=== PATIENT | male | born 1965 | race Caucasian/White ===

== ENCOUNTER 2023-09-12 10:25 | Emergency (ER) | payer MEDICARE, SELFPAY ==
[2023-09-12 10:27] VITALS: BP 119/98
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
[2023-09-12 12:02] LABS: Hematocrit 42.2 % (39.0-52.0); Hemoglobin 14.7 g/dL (13.0-18.0); Mean Corp Hgb Conc. 34.8 g/dL (33.0-37.0); Mean Corpuscular Hgb 33.2 pg (27.0-31.0); Mean Corpuscular Volume 95.3 fL (80.0-94.0); Mean Platelet Volume 9.6 fL (7.4-10.4); Platelet Count 273 10^3/uL (130-400); Red Blood Cell Count 4.43 10^6/uL (4.70-6.10); Red Cell Dist. Width 12.9 % (11.5-14.5); White Blood Cell Count 15.1 10^3/uL (4.8-10.8)
[2023-09-12 12:11] LABS: COVID-19 Antigen Negative (Negative)
[2023-09-12 12:15] LABS: ALT (SGPT) 21 U/L (0-50); AST (SGOT) 27 U/L (17-59); Acetaminophen < 10 ug/ml (10-30); Albumin 4.5 g/dl (3.5-5.0); Alkaline Phosphatase 108 U/L (38-126); Blood Urea Nitrogen 17 mg/dl (9-20); Carbon Dioxide 23 mmol/L (22-30); Chloride 110 mmol/L (98-107); Glucose 112 mg/dl (70-99); Potassium 4.1 mmol/L (3.5-5.1); Salicylate < 1.0 mg/dl (2.0-20.0); Sodium 139 mmol/L (135-145); Total Bilirubin 0.8 mg/dl (0.2-1.3); Total Protein 6.8 g/dl (6.3-8.2); eGFR > 60.00
[2023-09-12 12:16] LABS: Alcohol None Detected
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
[2023-09-12 15:25] LABS: Amphetamines Negative (Negative); Barbiturates Negative (Negative); Marijuana Positive (Negative)
[2023-09-12 15:26] LABS: Benzodiazepines Negative (Negative); Buprenorphine Negative (Negative); Cocaine Negative (Negative); Methadone Negative (Negative); Methamphetamines Negative (Negative); Opiates Negative (Negative); Phencyclidine Negative (Negative); Tricyclic Antidepressants Negative (Negative)
[2023-09-12 18:28] LABS: Folate 7.5 ng/ml (2.76-20); Vitamin B12 279 pg/ml (239-931)
--- NOTE | 2023-09-13 04:46 | EDRN ---
Upon determination of discharge, Hospital Staff is requested to call [facility] Police due to open warrant on pt for arrest. [facility] Police number: [phone]
Crisis Staff also made aware of pt warrant situation.
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
[2023-09-13] MEDS: ATIVAN 2 MG IM (10:47)
[2023-09-13] MEDS: BENADRYL 25 MG IM (10:47)
[2023-09-13] MEDS: HALDOL 5 MG IM (10:47)
[2023-09-13] MEDS: ATIVAN 2 MG PO (22:49)
[2023-09-13] MEDS: ZYPREXA 5 MG PO (22:49)
== END 2023-09-14 00:29 ==
LOC: EMR 10:25
PROVIDERS: CONSULT PHYSICIAN Psychiatry & Neurology Psychiatry; EMERGENCY PHYSICIAN Emergency Medicine
DX: F23 Brief psychotic disorder (principal); Z11.52 Encounter for screening for COVID-19
CPT/HCPCS: 99285; 96372 ×3; 80053; 80143; 80179; 80306; 82077; 82607; 82746; 85027; 87811; 93005; J2358

== ENCOUNTER 2024-04-14 01:48 | Observation (INO) | payer MEDICARE, SELFPAY ==
[2024-04-13] VITALS (8 sets, daily range): BP systolic 93–116; BP diastolic 61–92; PULSE 57–76; BMI 30.5
--- NOTE | 2024-04-13 21:38 | ED.GENMED ---
ED Provider Triage
<Devante Mckenna PA-C - Last Filed: 04/13/24 21:42>
-
Patient seen by provider in Triage?: Seen in Triage
Attestation: A medical screening examination has been initiated by a qualified medical provider. Based on the assessment performed at this time, it has been determined that an emergent medical condition may exist and the patient has been informed
that further medical evaluation and possible additional diagnostic testing may be needed.
HPI: 59-year-old male presenting to the ER via EMS near syncopal event at home, reportedly had 2 syncopal events while in the EMS truck. Patient clammy, nauseous and feels lightheaded. Per EMS they got a call from patient's chief business officer that
patient had a near syncopal event and was lowered to the ground. Patient with history of similar and has had episodic bradycardia. He reports seeing cardiology for this but does not remember who. Denies any GI symptoms. No chest pain. Due to
multiple syncopal events and patient appearing quite unwell decision was made to bring him back immediately into the ER. EKG done shows sinus bradycardia. Labs, IV fluids and orthostatic vital signs ordered. Patient was placed on manager cardiac
and pacer pads in case of any further bradycardic episodes
GENERAL: Alert , Castelan, diaphoretic and quite ill-appearing
EYE: No visual abnormalities.
NECK: Trachea midline
ENT: No visible abnormalities.
LUNGS: No acute respiratory distress
NEUROLOGICAL: Alert and oriented
SKIN: Skin intact. No visible changes.
MUSCULOSKELETAL: Moving extremities normally
PSYCH: Normal and appropriate interaction.
This is a medical evaluation conducted in person to initiate diagnostic evaluation and provide initial therapeutics. Please see further documentation by the treating clinician.
History of Present Illness
<Devante Mckenna PA-C - Last Filed: 04/13/24 21:42>
General
Chief Complaint: Fainting/Passed Out
<Yordy Guthrie DO - Last Filed: 04/13/24 23:32>
General
Source: patient
Exam Limitations: none
History of Present Illness
History of Present Illness:
See MDM
Past History
<Devante Mckenna PA-C - Last Filed: 04/13/24 21:42>
Past History
ED Past Medical History: Psychiatric (Psychosis) and Other (Chronic pain, low testosterone)
ED Past Surgical History: Orthopedic
Social History
Tobacco: Non-smoker
Alcohol: None
Drug: None
Personal: Single
Phy Exam
<Yordy Guthrie DO - Last Filed: 04/13/24 23:32>
Physical Exam
Physical Exam:
See MDM
Course
<Devante Mckenna PA-C - Last Filed: 04/13/24 21:42>
Orders/Labs/Results
Orders:
Orders
04/13/24 21:28
Electrocardiogram (*1) Urgent
Reason for Study: Syncope
EKG- Treatment ONCE
04/13/24 21:38
Orthostatic VS- Treatment ONCE
0.9% Sodium Chloride 1000 ml [Nss] 1,000 ml IV BOLUS
04/13/24 21:43
Basic Metabolic Panel Urgent
Complete Blood Count/With Diff Urgent
Manual Differential Urgent
Troponin I Urgent
Abnormal Lab Results
04/13/24
21:43
RBC 4.49 L 10^6/uL
(4.70-6.10)
MCH 31.8 H pg
(27.0-31.0)
Monocytes (Manual) 11 H %
(2-9)
BUN 21 H mg/dl
(9-20)
Glucose 144 H mg/dl
(70-99)
04/13/24 21:43
04/13/24 21:43
Vital Signs
Initial and Last Documented VS:
Initial Vital Signs
Temp Pulse Resp
98.7 F 62 15
04/13/24 21:26 04/13/24 21:26 04/13/24 21:26
Last Documented Vital Signs
Temp Pulse Resp BP Pulse Ox
98.7 F 72 16 112/72 99
04/13/24 21:26 04/13/24 23:15 04/13/24 23:15 04/13/24 23:13 04/13/24 23:15
<Yordy Guthrie, DO - Last Filed: 04/13/24 23:32>
Orders/Labs/Results
Orders:
Orders
04/13/24 21:28
Electrocardiogram (*1) Urgent
Reason for Study: Syncope
EKG- Treatment ONCE
04/13/24 21:38
Orthostatic VS- Treatment ONCE
0.9% Sodium Chloride 1000 ml [Nss] 1,000 ml IV BOLUS
04/13/24 21:43
Basic Metabolic Panel Urgent
Complete Blood Count/With Diff Urgent
Manual Differential Urgent
Troponin I Urgent
Abnormal Lab Results
04/13/24
21:43
RBC 4.49 L 10^6/uL
(4.70-6.10)
MCH 31.8 H pg
(27.0-31.0)
Monocytes (Manual) 11 H %
(2-9)
BUN 21 H mg/dl
(9-20)
Glucose 144 H mg/dl
(70-99)
04/13/24 21:43
04/13/24 21:43
Vital Signs
Initial and Last Documented VS:
Initial Vital Signs
Temp Pulse Resp
98.7 F 62 15
04/13/24 21:26 04/13/24 21:26 04/13/24 21:26
Last Documented Vital Signs
Temp Pulse Resp BP Pulse Ox
98.7 F 72 16 112/72 99
04/13/24 21:26 04/13/24 23:15 04/13/24 23:15 04/13/24 23:13 04/13/24 23:15
<Yordy Guthrie, DO - Last Filed: 04/13/24 23:32>
MDM/Problems Addressed
Differential Diagnosis Includes:
HPI and MDM Narrative:
59-year-old male presenting with multiple episodes of syncope. Patient states he has a history of bradycardic syncope. He states he is feeling 'off' today. EMS initially called for refusal. Patient had called EMS because he did not feel well.
However, patient had multiple syncopal events in front of EMS which prompted transport to the emergency department. On exam, patient does appear pale. He is bradycardic. He denies chest pain or shortness of breath
Will continue to monitor on telemetry and will obtain basic blood including troponin
Physical exam
General: Fatigued and pale
HEENT: protecting airway
Neck: appears supple
CV: No evidence of cyanosis. Bradycardic. No murmur
Resp: No accessory muscle use. Lungs clear
Abd: Non-distended
Extremities: No deformities
Neuro: alert
Psych: Normal affect
Skin: Intact
Problems Addressed including Acute and Chronic Conditions affecting care:
1. Syncope
Acuity: acute
Prognosis: stable
Details: Potentially bradycardic related. Will continue to monitor on the telemetry to look for any other evidence of cardiac arrhythmia
Updates
Despite IV fluids, patient still symptomatic. He is symptomatic at rest and even when he walks. Given the multiple episodes of syncope and his bradycardia, will admit for monitoring and further evaluation
Differential Diagnosis (but not limited to): Sick sinus syndrome, cardiac arrhythmia, syncope
Testing considered: D-dimer but he denies chest pain
Drug therapy (if applicable): OTC meds, please see d/c instruction regarding Rx drugs
Amount and/or Complexity of Data Reviewed
Clinical info obtained from: Patient
External data reviewed: N/A
Labs I independently reviewed (but not limited to): Mild elevated blood sugar
Radiology: N/A
Pulse Ox: not hypoxic
EKG independently reviewed: Sinus bradycardia, normal axis, no STEMI
Junior Engineer: Sinus bradycardia
Critical Care: N/A
Risk of Complication:
Social Determinants of health: Good social support
Discussed with other providers: Hospitalist
Escalation of Care includes Admit/Obs: Given the multiple syncopal episodes at rest, will admit for telemetry monitoring
Occasional wrong word or 'sound a like' substitutions may have occurred due to the inherent limitations of voice recognition software. Read the chart carefully and recognize, using context, where substitutions have occurred.
<Yordy Guthrie DO - Last Filed: 04/13/24 23:32>
*Critical Care Note
Total Time (30-74mins, 75-104mins- exclusive of procedures): Not Applicable
ED Attending Note
<Devante Mckenna PA-C - Last Filed: 04/13/24 21:42>
-
Portions of this chart may have been created with voice recognition software.� Occasional wrong word or��sound alike� substitutions may have occurred due to the inherent limitations of voice recognition software.
Discharge Plan
Departure
Patient Disposition: Admit
Date of Disposition: 04/13/24
Time of Disposition: 23:00
Admit to: Telemetry
Presentation/result/management discussed w/ accepting MD/DO: Hospitalist
Patient with high blood pressure during this ER visit?: No
Discharge Problem:
Syncope, Hyperglycemia
Prescriptions:
No Action
olanzapine 10 mg Tablet
10 mg PO HS
desvenlafaxine succinate 25 mg Tablet Extended Release 24 Hr
25 mg PO DAILY
Referrals:
Timmy Thomson MD [Active] -
NONE,* [Family Provider] -
Interventions
Interventions:
*Risk Screen - Suicide Last Done: 04/13/24 21:26
*General Assessment Last Done: 04/13/24 21:26
*Neglect/Abuse Screening Last Done: 04/13/24 21:36
*ED COVID-19 Vaccine History Last Done: 04/13/24 21:36
ED- Cardiac Assessment Last Done: 04/13/24 21:36
ED- Neurological Assessment Last Done: 04/13/24 21:36
Discharge Date and Time
Print Language: BHUTANESE
[2024-04-13] MEDS: NSS 1000 IV (21:40)
[2024-04-13 21:56] LABS: Hematocrit 40.2 % (39.0-52.0); Hemoglobin 14.3 g/dL (13.0-18.0); Mean Corp Hgb Conc. 35.6 g/dL (33.0-37.0); Mean Corpuscular Hgb 31.8 pg (27.0-31.0); Mean Corpuscular Volume 89.5 fL (80.0-94.0); Mean Platelet Volume 9.2 fL (7.4-10.4); Platelet Count 252 10^3/uL (130-400); Red Blood Cell Count 4.49 10^6/uL (4.70-6.10); White Blood Cell Count 10.1 10^3/uL (4.8-10.8)
[2024-04-13 22:06] LABS: Blood Urea Nitrogen 21 mg/dl (9-20); Calcium 9.1 mg/dl (8.4-10.2); Carbon Dioxide 24 mmol/L (22-30); Chloride 106 mmol/L (98-107); Estimated Creatinine Clearance 95 ml/min; Glucose 144 mg/dl (70-99); Sodium 141 mmol/L (135-145); eGFR > 60.00
[2024-04-13 22:08] LABS: Absolute Neutrophils -Man Diff 4.9 10^3/uL (1.4-6.5); Atypical Lymphocytes 1 %; Band Neutrophils 0 % (0-3); Eosinophils 1 % (0-6); Lymphocytes 38 % (20-51); Monocytes 11 % (2-9); Normal RBC Morphology Yes; Platelets Checked Yes; Segmented Neutrophils 49 % (42-75); Total Cells Counted 100
[2024-04-13 22:12] LABS: Troponin I < 0.012 ng/ml
[2024-04-14] VITALS (14 sets, daily range): BP systolic 99–158; BP diastolic 65–110; BMI 29.6
--- NOTE | 2024-04-14 01:43 | HPS.HSE ---
Family Physician
-
Family Physician: * NONE
Chief Complaint
-
Syncope
History of Present Illness
Patient is a 59y M with PMH significant for anxiety / depression who presents to ED complaining of multiple episodes of syncope this evening. Patient states that he was feeling well prior to this evening. He denies any recent N/V/D, increased
urination, fevers / chills, etc. Around 8Pm this evening, he got up and felt lightheaded / woozy. He states that he 'went out' though he denies falling or any significant injury. he states that he attempted to get back up; however, he had
recurrent symptoms each time he did so. He was unable to get up / stand upright and he called EMS.
In the ED, patient was noted to have mild bradycardia with rates in the 50-70 range. Heart rates did increase with activity / stimulation.
His BP was borderline: 90-110s systolic. Orthostatic signs were performed without significant drop in BP with position change.
He denies any recent med changes.
Medical History
Past Medical History
Past Medical History: Reports Other
Additional Past Medical History:
Hyperhidrosis
Anxiety / Depression
Dysautonomia
Past Surgical History: Reports Other
Additional Past Surgical History:
Hand Surgery
Bilateral Sympathectomies
Septoplasty
Social History
Tobacco: Smoker (Current some day smoker.)
Alcohol: None
Drug: None
Family History
Family History: Not pertinent
Allergies / Home Medications
Allergies reflects when Allergies were last updated in [employer].
Home Medications with original date entered in [employer]
Allergy/Medication List:
Allergies
Allergy/AdvReac Type Severity Reaction Status Date / Time
No Known Allergies Allergy Verified 09/12/23 13:25
Home Medications
desvenlafaxine succinate 25 mg tablet,extended release 24 hr 25 mg PO DAILY 04/13/24
olanzapine 10 mg tablet 10 mg PO HS 04/13/24
Review of Systems
-
History Source: Patient
A 12 point ROS was completed and negative except as noted: Yes
Constitutional: Reports Fatigue; Denies Fever or Chills
EENT: Denies Sore Throat
Respiratory: Denies Cough or Trouble Breathing
Cardiac: Reports Syncope; Denies Chest Pain, Diaphoresis or Palpitations
Abdomen/GI: Denies Abdominal Pain, Nausea, Vomiting or Diarrhea
: Denies Dysuria or Frequency
Musculoskeletal: Denies Joint Pain or Edema
Neurological: Reports Dizzy; Denies Headache
Psych: Denies Depression or Anxiety
Physical Exam
Vital Signs
Vital Signs
Temp Pulse Resp BP Pulse Ox
98.7 F 52 15 99/65 95
04/13/24 21:26 04/14/24 01:15 04/14/24 01:15 04/14/24 01:00 04/14/24 01:15
Physical Exam
General: Other (59y M in no acute distress.)
HEENT: Moist mucous membranes and PERRLA
Respiratory: Clear; No Wheezes, Rales or Rhonchi
Cardiac: S1/S2 and Regular Rhythm; No Murmur
GI: Soft, Non Tender, Non Distended and Normal Bowel Sounds
Musculoskeletal: No Clubbing, No Cyanosis and No Edema
Neuro: AO x 3 and Nonfocal/grossly intact
Laboratory Results
-
04/13/24 21:43
04/13/24 21:43
Laboratory Results
Troponin I < 0.012 ng/ml 04/13/24 21:43
Impression/Plan
-
A/P: Patient is a 59y M with PMH significant for anxiety / depression and dysautonomia who presents to ED for evaluation after multiple syncopal episodes at home this evening.
Syncope
- Observe overnight for further evaluation and treatment.
- Mild - moderate bradycardia - ? symptomatic even though not severe.
- Heart rate is variable in the ED with stimulation / activity.
- Orthostatic signs unremarkable in the ED - repeat in AM.
- IVFs overnight.
- Monitor on tele.
- PT / OT evals in the AM to assess gait / balance / etc.
- Consider Cardio eval if significant bradycardia / pauses / etc.
Anxiety / Depression
- Stable. Continue current medications.
DVT Prophylaxis: SCDs
Code Status: Full
[2024-04-14] MEDS: NSS 1000 IV (03:29)
[2024-04-14 07:23] LABS: Blood Urea Nitrogen 15 mg/dl (9-20); Calcium 8.3 mg/dl (8.4-10.2); Carbon Dioxide 23 mmol/L (22-30); Chloride 112 mmol/L (98-107); Estimated Creatinine Clearance 119 ml/min; Glucose 96 mg/dl (70-99); Potassium 4.3 mmol/L (3.5-5.1); Sodium 142 mmol/L (135-145); eGFR > 60.00
[2024-04-14 07:57] LABS: Hematocrit 37.1 % (39.0-52.0); Hemoglobin 13.5 g/dL (13.0-18.0); Mean Corp Hgb Conc. 36.4 g/dL (33.0-37.0); Mean Corpuscular Hgb 32.6 pg (27.0-31.0); Mean Corpuscular Volume 89.6 fL (80.0-94.0); Mean Platelet Volume 9.4 fL (7.4-10.4); Platelet Count 183 10^3/uL (130-400); Red Blood Cell Count 4.14 10^6/uL (4.70-6.10); Red Cell Dist. Width 12.1 % (11.5-14.5); White Blood Cell Count 6.1 10^3/uL (4.8-10.8)
[2024-04-14 08:05] LABS: TSH Reflex To Free T4 0.67 uIU/ml (0.47-4.68)
[2024-04-14] MEDS: PRISTIQ 25 MG PO (08:52)
[2024-04-14 10:55] LABS: Alcohol None Detected
[2024-04-14 11:07] LABS: Troponin I < 0.012 ng/ml
[2024-04-14 11:21] LABS: Amphetamines Negative (Negative); Barbiturates Negative (Negative); Benzodiazepines Negative (Negative); Buprenorphine Negative (Negative); Cocaine Negative (Negative); Methadone Negative (Negative); Methamphetamines Negative (Negative); Opiates Negative (Negative); Phencyclidine Negative (Negative)
[2024-04-14 11:22] LABS: Marijuana Negative (Negative); Tricyclic Antidepressants Negative (Negative)
[2024-04-14] MEDS: NSS IV (14:14)
--- NOTE | 2024-04-14 14:35 | CON.CAR ---
Addendum entered and electronically signed by Pierre Bonilla MD 04/14/24 16:23:
I saw and examined the patient.
The STEWARDING SUPERVISOR's note was reviewed and I agree with the note.
Comment: He reports a long history of recurrent syncope that is most c/w vaso-vagal syncope. This episode was different in that it was not preceded by a significant prodromal symptoms and he had recurrent syncope. His echo is unremarkable. His
EKG shows mild MITCHELL and normal QT. Given his meds it is reasonable to watch him on tele.
I suspect this was another vasovagal event. I educated him that recurrent syncope is not rare if one gets up too soon after syncope. The lack of a prodrome is concerning as if this is a recurring pattern then injury is more of a concern. For now
I don't favor adding midodrine. I favor increased fluid/salt intake.
Original Note:
Medical History
-
Chief Complaint: Syncope
History of Present Illness:
Baljit Pereyra is a 59-year-old male (seen by Dr. Barron in 2013), with autonomic dysfunction following an elective endoscopic thoracic sympathectomy (DARIUS, 2002) as treatment for hyperhidrosis, chronic pain syndrome, and psychosis (09/2023) who
presented to the emergency department with syncope. He stood up to answer the door and he had syncope. It recurred. He then had 1 episode in front of EMS. There are no EMS records for review. At the time this consultation, he is feeling well.
Past Medical History
Past Medical History: Psychiatric (Depression) and Other (Dysautonomia)
Past Surgical History: Orthopedic and Other (Thoracic surgical sympathectomy [DARIUS, 2002])
Social History
Tobacco: Smoker
Alcohol: None
Drug: None
Personal: Single
Family History
Family History: Reviewed & Not Pertinent (Denies early CAD and SCD.)
Allergies / Home Medications
Allergy/AdvReac Type Severity Reaction Status Date / Time
No Known Allergies Allergy Verified 09/12/23 13:25
�Medication �Instructions �Recorded �Confirmed �Type
desvenlafaxine succinate 25 mg 25 mg PO DAILY 04/13/24 04/13/24 History
tablet,extended release 24 hr
olanzapine 10 mg tablet 10 mg PO HS 04/13/24 04/13/24 History
Review of Systems
-
History Source: Patient
All other systems: Negative unless noted
Constitutional: No Symptoms
EENT: No Symptoms
Respiratory: No Symptoms
Cardiac: No Symptoms
Abdomen/GI: No Symptoms
: No Symptoms
Musculoskeletal: No Symptoms
Skin: No Symptoms
Neurological: No Symptoms
Endocrine: No Symptoms
Hematologic/Lymphatic: No Symptoms
Physical Exam
Vital Signs
Temp Pulse Resp BP Pulse Ox
97.4 F 58 30 151/77 99
04/14/24 12:00 04/14/24 13:15 04/14/24 13:15 04/14/24 12:00 04/14/24 12:00
Lab Results
04/14/24 06:51
04/14/24 06:51
Troponin I < 0.012 ng/ml 04/14/24 10:23
Physical Exam
General: Well Developed, Well Nourished, No Apparent Distress and Comfortable
HEENT: Normocephalic and Anicteric
Respiratory: Clear and Non Labored Respirations
Cardiac: S1/S2 and Regular Rhythm
Breast: Deferred by me
GI: Soft, Non Tender, Non Distended and Normal Bowel Sounds
Rectal: Deferred by Provider
Genito-urinary: No Costovertebral Tender
Musculoskeletal: No Clubbing, No Cyanosis and No Edema
Skin: Warm and Dry
Neuro: AO x 3
Hematologic/Lymphatic: No Lymphadenopathy
Psych: Calm
Impression / Plan
-
IMPRESSION/PLAN: 59M with autonomic dysfunction following an elective endoscopic thoracic sympathectomy (DARIUS, 2003) as treatment for hyperhidrosis, chronic pain syndrome, and psychosis (09/2023) who presented to the emergency department with syncope.
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
Syncope, recurrent
-One episode with an additional shortly thereafter and another episode in front of EMS
-He has a long history of vasovagal syncope
-EKG with sinus bradycardia and nonspecific T wave abnormality
-Orthostatic vital signs unremarkable
-He has underlying dysautonomia
-Echocardiogram without any acute findings
Endoscopic thoracic sympathectomy (DARIUS, 2002) as treatment for hyperhidrosis, with residual dysautonomic dysfunction
--- NOTE | 2024-04-14 15:29 | W.PN.HOSP.TC ---
Today's Communication/Plan
-
monitor on tele
cards consulted - most likely will benefit from [facility] outpt
Assessment / Plan
Assessment / Plan
Physical Exam
General: Other (59y M in no acute distress.)
HEENT: Moist mucous membranes and PERRLA
Respiratory: Clear; No Wheezes, Rales or Rhonchi
Cardiac: S1/S2 and Regular Rhythm; No Murmur
GI: Soft, Non Tender, Non Distended and Normal Bowel Sounds
Musculoskeletal: No Clubbing, No Cyanosis and No Edema
Neuro: AO x 3 and Nonfocal/grossly intact
A/P: Patient is a 59y M with PMH significant for anxiety / depression and dysautonomia who presents to ED for evaluation after multiple syncopal episodes at home this evening.
Syncope, recurrent
-recurrent
- Mild - moderate bradycardia - ? symptomatic even though not severe.
- Heart rate is variable in the ED with stimulation / activity.
- Orthostatic signs unremarkable
- Monitor on tele.
- PT / OT evals in the AM to assess gait / balance / etc.
- Cards consulted
- UDS negative
Anxiety / Depression
- Stable. Continue current medications.
DVT Prophylaxis: HSQ
Code Status: Full
Anticipated Discharge: Within 24 hours
Subjective/Interval History
-
Date of Service: April 14, 2024
No acute events, bradycardic although responsive to activity
Objective Data
-
Labs:
Laboratory Results
04/14/24
06:51
WBC 6.1
Hgb 13.5
Hct 37.1 L
Plt Count 183 D
Sodium 142
Potassium 4.3
Chloride 112 H
Carbon Dioxide 23
BUN 15
Creatinine 0.8
Glucose 96
Calcium 8.3 L
Vital Signs:
Vital Signs
Temp Pulse Resp BP Pulse Ox
97.4 F 58 30 151/77 99
04/14/24 12:00 04/14/24 13:15 04/14/24 13:15 04/14/24 12:00 04/14/24 12:00
Review of Systems
-
History Source: Patient
All other systems: Not reviewed unless documented
Data Reviewed
-
Medical Tests (Nuc Med, Echo etc): Report Reviewed by me
Labs: Labs Reviewed by me
[2024-04-14] MEDS: HEPARIN 5000 UNITS SC (16:51)
[2024-04-14 17:29] LABS: Troponin I < 0.012 ng/ml
--- NOTE | 2024-04-14 20:30 | PTCARENOTE ---
Pt arrived from ED via stretcher and ambulated to bed. Pt is AAOx3, VSS, and w/o complaints of pain. Pt is oriented to unit, resting comfortably with call clements within reach.
[2024-04-14] MEDS: ZYPREXA 10 MG PO (22:06)
[2024-04-14] MEDS: HEPARIN SC (23:39)
[2024-04-15 03:24] VITALS: BP 134/76
[2024-04-15 03:57] VITALS: BP 129/70; BP 138/90; BP 142/82; PULSE 52; PULSE 60; PULSE 68
[2024-04-15 07:51] VITALS: BP 152/88
[2024-04-15] MEDS: FLUSH (NSS) 1 FLUSH IV (08:29)
[2024-04-15] MEDS: PRISTIQ 25 MG PO (08:29)
[2024-04-15] MEDS: HEPARIN SC (08:31)
[2024-04-15 08:55] LABS: Hematocrit 39.3 % (39.0-52.0); Hemoglobin 13.9 g/dL (13.0-18.0); Mean Corp Hgb Conc. 35.4 g/dL (33.0-37.0); Mean Corpuscular Hgb 32.6 pg (27.0-31.0); Mean Corpuscular Volume 92.3 fL (80.0-94.0); Mean Platelet Volume 9.9 fL (7.4-10.4); Platelet Count 191 10^3/uL (130-400); Red Blood Cell Count 4.26 10^6/uL (4.70-6.10); Red Cell Dist. Width 12.2 % (11.5-14.5); White Blood Cell Count 5.8 10^3/uL (4.8-10.8)
[2024-04-15 09:31] LABS: Blood Urea Nitrogen 15 mg/dl (9-20); Carbon Dioxide 25 mmol/L (22-30); Chloride 110 mmol/L (98-107); Estimated Creatinine Clearance 94 ml/min; Glucose 88 mg/dl (70-99); Potassium 4.5 mmol/L (3.5-5.1); Sodium 145 mmol/L (135-145); eGFR > 60.00
--- NOTE | 2024-04-15 11:08 | CM ---
transplant case manager reviewed patient's chart and met with patient and patient was admitted under obs, GIRON letter provided and signed by patient. Patient lives alone in a one story home with 3 steps to enter, patient is independent with adl's and
ambulation, no dme, patient drives.
Pharmacy: [facility] in [place].
Plan; Home today no needs.
[2024-04-15 11:19] VITALS: BP 160/90
[2024-04-15 11:20] VITALS: BP 142/92; BP 152/88; BP 160/90; PULSE 58; PULSE 67
--- NOTE | 2024-04-15 11:57 | W.PN.HOSP.TC ---
Addendum entered and electronically signed by Tony Glass MD 04/16/24 16:20:
[id number]
Addendum entered and electronically signed by Tony Glass MD 04/15/24 12:04:
Can hold off on Holter monitor at this time as per cardiology still can follow-up PCP outpatient. Can hold off on cardiology follow-up at this moment, defer to PCP
Original Note:
Today's Communication/Plan
-
increase fluid intake
vasovagal syncope education
f/u pcp outpt
Assessment / Plan
Assessment / Plan
Physical Exam
General: Other (59y M in no acute distress.)
HEENT: Moist mucous membranes and PERRLA
Respiratory: Clear; No Wheezes, Rales or Rhonchi
Cardiac: S1/S2 and Regular Rhythm; No Murmur
GI: Soft, Non Tender, Non Distended and Normal Bowel Sounds
Musculoskeletal: No Clubbing, No Cyanosis and No Edema
Neuro: AO x 3 and Nonfocal/grossly intact
A/P: Patient is a 59y M with PMH significant for anxiety / depression and dysautonomia who presents to ED for evaluation after multiple syncopal episodes at home this evening.
Syncope, recurrent
� Most likely vasovagal
� Has been recurrent issue with history of this autonomic dysfunction after endoscopic thoracic sympathectomy (DARIUS, 2003)
-recurrent
-favor increased fluid/salt intake.
- Heart rate is variable in the ED with stimulation / activity.
- Orthostatic signs unremarkable
- Monitor on tele.
- PT / OT evals in the AM to assess gait / balance / etc.
- Cards consulted =- f/u outpt
- UDS negative
Anxiety / Depression
- Stable. Continue current medications.
DVT Prophylaxis: HSQ
Code Status: Full
More than 30 minutes spent in discharge including
Final examination of the patient
Summarizing hospital stay
Instructions for continuing care to all relevant caregivers
Preparation of discharge records, prescriptions, and referral forms
Total time spent (35 in minutes):
Anticipated Discharge: Today
Subjective/Interval History
-
Date of Service: April 15, 2024
No acute events
Objective Data
-
Labs:
Laboratory Results
04/15/24
07:23
WBC 5.8
Hgb 13.9
Hct 39.3
Plt Count 191
Sodium 145
Potassium 4.5
Chloride 110 H
Carbon Dioxide 25
BUN 15
Creatinine 0.9
Glucose 88
Calcium 9.0
Vital Signs:
Vital Signs
Temp Pulse Resp BP Pulse Ox
97.5 F 58 20 160/90 98
04/15/24 11:19 04/15/24 11:19 04/15/24 11:19 04/15/24 11:19 04/15/24 11:19
I&O
04/14/24 04/15/24 04/16/24
06:59 06:59 06:59
Intake Total 0 / 0
Balance 0 / 0
Review of Systems
-
History Source: Patient
All other systems: Not reviewed unless documented
Data Reviewed
-
Medical Tests (Nuc Med, Echo etc): Report Reviewed by me
Labs: Labs Reviewed by me
--- NOTE | 2024-04-15 12:03 | W.PN.CD ---
Today's Communication / Plan
-
OK for home
No need for outpatient telemetry
F/u with cardiology only if more syncope w/o prodrome
Cardiology will sign off
Impression / Plan
-
Background: 59M with autonomic dysfunction following an elective endoscopic thoracic sympathectomy (DARIUS, 2002) as treatment for hyperhidrosis, chronic pain syndrome, and psychosis (09/2023) who presented to the emergency department with syncope.
Long history of recurrent syncope (vasovagal).
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
Syncope, recurrent
- Despite the lack of prodromal symptoms the most likely diagnosis is vasovagal syncope based on his history. Echo unremarkable and eKG with Sinus 55 bpm with T wave flattening
- I provided additional education to patient and his sister
- If more syncope w/o prodrome we could offer midodrine
Chronic psychiatric disease
Endoscopic thoracic sympathectomy (DARIUS, 2002) as treatment for hyperhidrosis, with residual dysautonomic dysfunction
Subjective:
No recurrent syncope
Physical Exam
Vital Signs/Labs
Vital Signs
Temp Pulse Resp BP Pulse Ox
97.5 F 58 20 160/90 98
04/15/24 11:19 04/15/24 11:19 04/15/24 11:19 04/15/24 11:19 04/15/24 11:19
04/14/24 04/15/24 04/16/24
06:59 06:59 06:59
Actual Weight 99.21 kg 96.19 kg
04/15/24 07:23
04/15/24 07:23
LAB Results
04/13/24 04/14/24 04/14/24
21:43 10:23 16:51
Troponin I < 0.012 < 0.012 < 0.012
04/15/24
01:15
Troponin I Cancelled
Physical Exam
Constitutional: No acute distress
EENT: Anicteric
Cardiovascular: Rhythm & rate is regular and Pedal edema is absent
Respiratory: Respiratory effort normal and Lungs clear to auscul.
GI: Soft and Distention absent
Neuro/Psych: AO x 3
Data Reviewed
-
Date of Service: April 15, 2024
--- NOTE | 2024-04-15 12:03 | W.DS.TRANS ---
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
-
Discharge Instructions:
Discharge Diagnosis/Procedures Syncope, recurrent
Diet Low Cholesterol,Low Fat
Activity As tolerated
Instructions:
Stand-Alone Forms:
Changes to Home Medications: No
Discharge Medications:
DC Medications w/original date entered in [employer]
desvenlafaxine succinate 25 mg tablet,extended release 24 hr 25 mg PO DAILY Mental Health/Anxiety 04/13/24
olanzapine 10 mg tablet 10 mg PO HS Mental Health/Anxiety 04/13/24
Home Medication Changes
na
Pending Results: No
== END 2024-04-15 13:30 | disposition home or self-care (01) ==
LOC: 4 EAST ACU 01:48
PROVIDERS: Physician Assistant Medical; ADMITTING PHYSICIAN Hospitalist; ATTENDING PHYSICIAN Internal Medicine; CONSULT PHYSICIAN Internal Medicine Cardiovascular Disease; EMERGENCY PHYSICIAN Student in an Organized Health Care Education/Training Program
DX: R55 Syncope and collapse (principal); R11.0 Nausea; R42 Dizziness and giddiness; R00.1 Bradycardia, unspecified; R61 Generalized hyperhidrosis; R73.9 Hyperglycemia, unspecified; F41.9 Anxiety disorder, unspecified; F32.A Depression, unspecified; G90.1 Familial dysautonomia [Riley-Day]; F17.200 Nicotine dependence, unspecified, uncomplicated; G89.4 Chronic pain syndrome; Z60.2 Problems related to living alone
CPT/HCPCS: 80048; 80306; 82077; 84443; 84484; 85025; 85027; 93005; 93306; 96360; 97161; 97165; 99285; G0378